=== PATIENT | female | born 1980 | race African-American/Black ===

== ENCOUNTER 2018-10-23 22:51 | Emergency (ER) | payer SELFPAY ==
[~2018-10-23] VITALS: Ht 165.1 cm; Wt 86.2 kg
[2018-10-23 23:40] VITALS: BP 145/97
--- NOTE | 2018-10-23 23:40 | NUR ---
PT BIBSELF C/O RIGHT SIDE MOUTH PAIN X4 HR. -RECENT DENTAL PROCEDURE. 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 NAD NOTED. RESP EVEN AND UNLABORED. PT IN BED 9 AWAITING EVAL.
--- NOTE | 2018-10-24 00:36 | NUR ---
PA AT BEDSIDE FOR EVAL
[2018-10-24] MEDS ORDERED: KETOROLAC TROMETHAMINE INJ 60 MG/2 ML VIAL IM ONE (01:00)
[2018-10-24] MEDS ORDERED: oxyCODONE/APAP (5/325 MG) 1 UDTAB TABLET PO ONE (01:00)
[2018-10-24] MEDS ORDERED: KETOROLAC TROMETHAMINE INJ 30 MG/ML VIAL ONE (01:07)
[2018-10-24] MEDS ORDERED: oxyCODONE/APAP (5/325 MG) 1 UDTAB TABLET ONE (01:08)
== END 2018-10-24 02:11 | disposition home or self-care (01) ==
LOC: ER 22:53
DX: K04.7 Periapical abscess without sinus (principal); K02.9 Dental caries, unspecified; F17.200 Nicotine dependence, unspecified, uncomplicated; Z98.890 Other specified postprocedural states; Z88.8 Allergy status to other drugs, medicaments and biological substances
CPT/HCPCS: 96372; 99283; J1885

== ENCOUNTER 2019-05-14 12:25 | Emergency (ER) | payer BC, MEDICAID ==
[~2019-05-14] VITALS: Ht 165.1 cm; Wt 86.2 kg
[2019-05-14 12:33] VITALS: BP 155/112
--- NOTE | 2019-05-14 12:43 | NUR ---
PT CAME IN TO ER FOR POSSIBLE TOOTH/ NERVE IRRITATION. PT CLAIMS THAT 2 MONTHS AGO SHE PULLED OUT HER MOLAR ON THE BOTTOM RIGHT SIDE OF HER MOUTH AND THAT THERE IS STILL A PIECE OF TOOTH IN THERE. PATIENT STATES THAT THERE IS PAIN WHEN EXPOSED TO HOT AND COLD. AAOX4. NO SOB. BREATHING EVEN AND UNLABORED. WILL CONTINUE TO MONITOR.
== END 2019-05-14 13:24 | disposition home or self-care (01) ==
LOC: ER 12:28
DX: K02.9 Dental caries, unspecified (principal); F17.200 Nicotine dependence, unspecified, uncomplicated; Z98.890 Other specified postprocedural states; Z88.8 Allergy status to other drugs, medicaments and biological substances; Z91.040 Latex allergy status